=== PATIENT | female | born 1950 | race American Indian/Alaskan Native ===

== ENCOUNTER 2017-05-06 09:26 | Emergency (ER) | payer MEDICARE ==
[2017-05-06 10:54] VITALS: BP 163/91
[2017-05-06] MEDS ORDERED: TORADOL IM ONE (11:20)
--- NOTE | 2017-05-06 11:21 | Emergency Department Report ---
ED Fall HPI - General Chief Complaint: Extremity Problem,Nontraumatic Stated Complaint: RIGHT KNEE PAIN/FALL Time Seen by Provider: 05/06/17 11:10 Source: patient, family Mode of arrival: Ambulatory Limitations: No Limitations - History of Present Illness Initial Comments: Patient reported that she fell at 1 minute yesterday while getting out of a chair. Patient reports that she is having pain to her right knee and right hip that is 8 out of 10 and achy. No [id number] medication taken. She says she fell on landed on her right knee and she is written in her right knee and her right hip. Pain is worse with walking and better with resting. Denies any numbness or tingling. Patient has a history of arthritis and high blood pressure. MD Complaint: fall Onset/Timin -: days(s) Fall From: wheelchair (while getting out of chair), other When Fall Occurred: other (yesterday afternoon) Fall Witnessed: yes, by family, yes, by bystander Place Fall Occurred: other (wall marked) Loss of Consciousness: none Prolonged Down Time?: no Symptoms Prior to Fall: none Location - Extremities: Right: Thigh (right hip pain), Knee (pain and swelling) Severity: severe Quality: aching Context: tripped/slipped Associated Symptoms: denies: headache, neck pain, numbness, weakness, chest paint, shortness of breath, abdominal pain, hematuria, unable to walk, lightheaded, vertigo, confusion - Related Data Previous Rx's Medication Instructions Recorded Last Taken Type Ranitidine HCl [Zantac] 150 mg PO BID #30 tablet 03/14/13 Unknown Rx amLODIPine [Norvasc] 10 mg PO DAILY #30 tablet 03/14/13 Unknown Rx traMADol [Ultram] 50 mg PO Q6HR PRN 5 Days #20 tablet 05/06/17 Unknown Rx Allergies Allergy/AdvReac Type Severity Reaction Status Date / Time No Known Allergies Allergy Unverified 03/13/13 08:41 ED Review of Systems ROS: Stated complaint: RIGHT KNEE PAIN/FALL Other details as noted in HPI Comment: All other systems reviewed and negative Constitutional: no symptoms reported Respiratory: no symptoms reported Cardiovascular: denies: chest pain, palpitations, dyspnea on exertion, orthopnea , edema, syncope, paroxysmal nocturnal dyspnea Gastrointestinal: denies: abdominal pain, nausea, vomiting, diarrhea, constipation, hematemesis, melena, hematochezia Genitourinary: denies: urgency, dysuria, frequency, hematuria, discharge Musculoskeletal: arthralgia. denies: back pain, joint swelling, myalgia Skin: denies: rash Neurological: denies: headache, weakness, numbness, paresthesias, confusion, abnormal gait, vertigo ED Past Medical Hx - Past Medical History Previous Medical History?: Yes Hx Hypertension: Yes (no medication) Hx CVA: No - Surgical History Past Surgical History?: Yes Additional Surgical History: ectopic. x 2. right knee surgery and right shoulder surgery - Family History Family history: hypertension - Social History Smoking Status: Former Smoker Substance Use Type: None - Medications Home Medications: Home Medications Medication Instructions Recorded Confirmed Last Taken Type Ranitidine HCl [Zantac] 150 mg PO BID #30 tablet 03/14/13 Unknown Rx amLODIPine [Norvasc] 10 mg PO DAILY #30 tablet 03/14/13 Unknown Rx traMADol [Ultram] 50 mg PO Q6HR PRN 5 Days #20 tablet 05/06/17 Unknown Rx ED Physical Exam - General Limitations: No Limitations General appearance: alert, in no apparent distress - Head Head exam: Present: atraumatic, normocephalic, normal inspection, other (normal examination) - Eye Eye exam: Present: normal appearance, PERRL, EOMI. Absent: periorbital swelling , periorbital tenderness Pupils: Present: normal accommodation - ENT ENT exam: Present: normal exam, normal orophraynx, mucous membranes moist, TM's normal bilaterally, normal external ear exam - Neck Neck exam: Present: normal inspection, full ROM, other (O C-spine tenderness). Absent: tenderness, meningismus, lymphadenopathy, thyromegaly - Respiratory Respiratory exam: Present: normal lung sounds bilaterally. Absent: respiratory distress, chest wall tenderness, accessory muscle use - Cardiovascular Cardiovascular Exam: Present: regular rate, normal rhythm, normal heart sounds. Absent: systolic murmur, diastolic murmur - GI/Abdominal GI/Abdominal exam: Present: soft, normal bowel sounds. Absent: distended, tenderness, guarding, rebound, rigid - Extremities Exam Extremities exam: Present: normal inspection, full ROM, tenderness (tender to palpate to right knee), normal capillary refill, joint swelling (right knee), other (no clubbing or cyanosis to extremities. No neurovascular compromise. + 5 strength in all extremities. +2 pulses in all extremities.). Absent: pedal edema, calf tenderness - Expanded Lower Extremity Exam Right Hip exam: Present: normal inspection, full ROM, pelvic stability. Absent: tenderness, swelling, abrasion, laceration, ecchymosis, deformity, crepidus, dislocation, erythema, external rotation, internal rotation, shortening Upper Leg exam: Present: normal inspection, full ROM. Absent: tenderness, swelling, abrasion, laceration, ecchymosis, deformity, crepidus, dislocation, erythema Knee exam: Present: full ROM (patient with full range of motion to all extremities but she reports pain with extending her right knee), tenderness, swelling, pain w/ pronation/supination, full knee extension (she has full knee extension but is very painful with active and passive range of motion). Absent : normal inspection, abrasion, laceration, ecchymosis, deformity, crepidus, dislocation, erythema, effusion, posterior draw sign, pain/laxity with valgus, pain/laxity with varus Lower Leg exam: Present: normal inspection, full ROM. Absent: tenderness, swelling, abrasion, laceration, ecchymosis, deformity, crepidus, dislocation, erythema, palpable cord, Sana's sign Ankle exam: Present: normal inspection, full ROM. Absent: tenderness, swelling , abrasion, laceration, ecchymosis, deformity, crepidus, dislocation, erythema, anterior draw sign Foot/Toe exam: Present: normal inspection, full ROM. Absent: tenderness, swelling, abrasion, laceration, ecchymosis, deformity, crepidus, dislocation, erythema, amputation, puncture wound, foreign body, calcaneal tenderness, tenderness at base of 5th metatarsal, nail avulsion, subungual hematoma Neuro vascular tendon exam: Present: no vascular compromise. Absent: pulse deficit, abnormal cap refill, motor deficit, sensory deficit, tendon deficit, extremity cold to touch, pallor, abnormal 2-point discrimination, decreased fine /light touch, foot drop, peroneal nerve deficit, significant pain with passive ROM of distal joint Gait: Positive: observed and limited by pain - Back Exam Back exam: Present: normal inspection, full ROM, other (patient ambulate with limp). Absent: tenderness, CVA tenderness (R), CVA tenderness (L), muscle spasm , paraspinal tenderness, vertebral tenderness, rash noted - Neurological Exam Neurological exam: Present: alert, oriented X3, abnormal gait (patient with a limp. Due to right knee pain and swelling.), reflexes normal, other (no focal neurological deficit). Absent: motor sensory deficit - Psychiatric Psychiatric exam: Present: normal affect, normal mood - Skin Skin exam: Present: warm, dry, intact, normal color. Absent: rash ED Course Vital Signs 05/06/17 10:47 Temperature 98.8 F Pulse Rate 91 H Respiratory 20 Rate Blood Pressure 163/91 O2 Sat by Pulse 95 Oximetry - Reevaluation(s) Reevaluation #1: 05/06/17 13:04 Patient given Toradol 60 mg IM in emergency room for pain which relieved her pain. - Orthopedic Splinting/Casting Injury #1 Side: right Lower Extremity Injury Location: knee Lower Extremity Immobilizer: Julito wrap ED Medical Decision Making - Radiology Data Radiology results: report reviewed X-ray of right hip reveals no fracture or dislocation but she does have arthritic changes to the lateral aspect of her hip joint. X-ray of right knee reveals patient with severe degenerative changes medial and patellofemoral compartment medial joint. No fracture or dislocation - Medical Decision Making ED course: Patient here reports fall yesterday at [facility] complaining of right hip and right knee pain with swelling to right knee. She was observed limping. Physical findings for swelling to right knee and patient went limp when ambulating. She has right knee swelling with tenderness to palpate. X-ray finance for severe degenerative changes medial and patellofemoral compartment knee joint Aaso with arthritic changes to lateral aspect of hip joint. She was given Toradol 60 mg IM and emergency room for pain is relieved her pain. See procedure note for splinted details. I discussed the patient she'll need to follow up with orthopedic doctor for further treatment and management of pain. She was understanding the discharge instructions and treatment plan and discharged home with her family in stable condition with prescription for Ultram. Critical care attestation.: If time is entered above; I have spent that time in minutes in the direct care of this critically ill patient, excluding procedure time. ED Disposition Clinical Impression: Arthralgia of multiple joints Accidental fall Qualifiers: Encounter type: initial encounter Qualified Code(s): W19.XXXA - Unspecified fall, initial encounter Disposition: DC-01 TO HOME OR SELFCARE Is pt being admited?: No Does the pt Need Aspirin: No Condition: Stable Instructions: Knee Pain (ED), Knee Exercises (GEN), Arthralgia (ED), Fall Prevention for Older Adults (ED), Osteoarthritis (ED) Additional Instructions: Please follow up at [facility] and also orthopedic doctor for management of medical problems include osteoarthritis Please do not drive or operate heavy machinery while taking Ultram as this medication causes drowsiness rest for 72 hours. Following discharge instruction and rice protocol Prescriptions: traMADol [Ultram] 50 mg PO Q6HR PRN 5 Days #20 tablet PRN Reason: Pain Referrals: [facility] [Outside] - 3-5 Days ARLIN MURRELL MD [Staff Physician] - 3-5 Days Forms: Work/School Release Form(ED)
--- NOTE | 2017-05-06 11:27 | XRay Report ---
Right knee 3 views: History: Knee pain. Findings: Marked narrowing of medial and patellofemoral compartment knee joint. Sclerotic adjacent articular surfaces with peripheral osteophytes a history of severe degenerative changes. No fracture or joint effusion. Impression: Severe degenerative changes medial and patellofemoral compartment knee joint.
--- NOTE | 2017-05-06 12:04 | XRay Report ---
Right hip 2 views: History: Fall with hip pain. Findings: No evidence of acute fracture or dislocation. Arthritic changes of the lateral aspect hip joint. Impression: No evidence of acute fracture.
== END 2017-05-06 13:11 | disposition home or self-care (01) ==
LOC: ED 09:26
DX: M25.561 Pain in right knee (principal); M25.551 Pain in right hip; I10 Essential (primary) hypertension; Z87.891 Personal history of nicotine dependence; W17.89XA Other fall from one level to another, initial encounter; Y93.89 Activity, other specified; Y92.89 Other specified places as the place of occurrence of the external cause; Y99.8 Other external cause status
CPT/HCPCS: 73502; 73562; 96372; 99284; J1885

== ENCOUNTER 2017-07-05 11:30 | Day surgery (SDC) | payer MEDICARE ==
[~2017-07-05 11:30] MED LIST: IOPIDINE ONE; MYDRIACYL ONE; NEOFRIN ONE
[2017-07-05] MEDS ORDERED: MYDRIACYL OS ONE (11:51)
[2017-07-05] MEDS ORDERED: NEOFRIN OS ONE (11:51)
[2017-07-05] MEDS ORDERED: IOPIDINE OS ONE ×2 (11:51→13:07)
[2017-07-05 13:06] VITALS: BP 116/78
== END 2017-07-05 13:08 | disposition home or self-care (01) ==
LOC: OR 11:30
PROVIDERS: ATTEND Specialist
DX: H26.491 Other secondary cataract, right eye (principal)